=== PATIENT | female | born 1990 | race Two or more races ===

== ENCOUNTER 2021-04-12 18:25 | Emergency (ER) | payer MEDICAID ==
[~2021-04-12] VITALS: Ht 160 cm; Wt 81.6 kg
--- NOTE | 2021-04-12 18:34 | NUR ---
TO ER BED 16, 10 WEEKS WITH TWINS BY US, C/O VAGINAL BLEEDING SINCE THIS MORNING, AAOX3, BREATHING EVEN AND NON LABORED
[2021-04-12 19:02] LABS: BILIRUBIN,URINE NEGATIVE (NEGATIVE); COLOR,URINE YELLOW (YELLOW); LEUKOCYTE ESTERASE ,URINE NEGATIVE (NEGATIVE); NITRITE, URINE NEGATIVE (NEGATIVE); PH,URINE 5.5 (5.0-8.0); PROTEIN,URINE NEGATIVE (NEGATIVE); UGLUCOSE NEGATIVE (NEGATIVE); UROBILINOGEN,URINE 0.2 EU/dL (0.2)
[2021-04-12] MEDS ORDERED: ACETAMINOPHEN 325 MG TABLET ONE (19:03)
[2021-04-12] MEDS: ACETAMINOPHEN 325 MG TABLET PO ONE (19:05)
--- NOTE | 2021-04-12 19:07 | NUR ---
LAB AT BEDSIDE
[2021-04-12 19:17] LABS: BACTERIA,URINE Few /HPF (None Seen); SQUAMOUS EPITHELIAL CELL,UR Few /HPF (None Seen); WBC,URINE 0-2 /HPF (0-3)
[2021-04-12 19:24] LABS: BASOPHILS # (AUTO) 0.1 K/uL (0.0-0.2); EOSINOPHILS % (AUTO) 1.3 % (0.0-6.0); HEMATOCRIT 39 % (33-45); LYMPHOCYTES # (AUTO) 2.1 K/uL (0.8-4.8); LYMPHOCYTES % (AUTO) 22.8 % (20.0-44.0); MEAN CORPUSCULAR HGB CONC 34 g/dl (31.0-36.0); MEAN CORPUSCULAR VOLUME 91 fL (82-100); MONOCYTES # (AUTO) 0.8 K/uL (0.1-1.30); MONOCYTES % (AUTO) 8.8 % (2.0-12.0); NEUTROPHILS # (AUTO) 6.1 K/uL (1.8-8.9); NEUTROPHILS % (AUTO) 66.1 % (43.0-81.0); PLATELET COUNT (AUTO) 265 K/uL (150-450); RED BLOOD CELL COUNT(AUTO) 4.25 MIL/uL (4.0-5.2); WHITE BLOOD COUNT (AUTO) 9.2 K/uL (4.3-11.0)
--- NOTE | 2021-04-12 19:36 | NUR ---
PATIENT RESTING COMFORTABLY IN BED BREATHING EVEN AND UNLABORED ALL VITAL SIGNS STABLE.
[2021-04-12 19:40] LABS: CALCIUM, SERUM 8.3 mg/dL (8.5-10.1); CREATININE 0.6 mg/dL (0.6-1.3); POTASSIUM 3.4 mmol/L (3.5-5.1)
--- NOTE | 2021-04-12 19:43 | NUR ---
PER LAB PT NOT A CANDIDATE FOR [facility]
[2021-04-12 20:10] LABS: ALBUMIN 3.8 g/dL (3.4-5.0); BILIRUBIN,DIRECT 0.1 mg/dL (0.0-0.2); BILIRUBIN,TOTAL 0.4 mg/dL (0.2-1.0); TOTAL PROTEIN, SERUM 7.3 g/dL (6.4-8.2)
--- NOTE | 2021-04-12 21:27 | NUR ---
Patient discharged to home in stable condition. Written and verbal after care instructions given. Patient verbalizes understanding of instruction. RAD NOT ABLE TO PROVIDE CD IMAGE, PT STATED SHE CAN COME BACK AT LATER TIME TO PICK IT UP.
[2021-04-12 21:28] VITALS: BP 128/70
== END 2021-04-12 21:28 | disposition home or self-care (01) ==
LOC: ER 18:35
DX: O46.91 Antepartum hemorrhage, unspecified, first trimester (principal); Z3A.01 Less than 8 weeks gestation of pregnancy
CPT/HCPCS: 36415; 76805-TC; 80048-TC; 80076-TC; 81001; 84702-TC; 85025-TC; 85730-TC